=== PATIENT | male | born 1995 | race African-American/Black ===

== ENCOUNTER 2020-02-27 12:46 | Emergency (ER) | payer BC ==
[~2020-02-27] VITALS: Ht 177.8 cm; Wt 95.3 kg
[~2020-02-27 12:46] MED LIST: NOHOMEMEDICATIONS
[2020-02-27] MEDS ORDERED: COLACE100 MG (13:01)
[2020-02-27 14:06] LABS: ABSOLUTE BASOPHILS 0.1 thou/uL (0.0-0.2); ABSOLUTE EOSINOPHILS 0.1 thou/uL (0.0-0.7); ABSOLUTE LYMPHOCYTES 1.4 thou/uL (0.8-5.3); ABSOLUTE MONOCYTES 0.4 thou/uL (0.0-1.2); ABSOLUTE NEUTROPHILS 3.2 thou/uL (1.6-8.1); HEMATOCRIT 41.9 % (42.0-52.0); HEMOGLOBIN 14.2 gm/dL (14.0-18.0); LYMPHOCYTES 27.3 %; MCH 27.8 pg (26.0-34.0); MCHC 33.9 g/dL (28.0-37.0); MONOCYTES 8.2 %; MPV 8.4 fl. (7.2-11.1); NUCLEATED RBCS 0 /100WBC; PLATELET COUNT* 231 thou/uL (150-400); POLYS 62.5 %; RBC 5.11 mil/uL (4.50-6.00); RDW-CV 13.5 % (10.5-14.5); WBC 5.2 thou/uL (4.0-11.0)
[2020-02-27 14:14] LABS: CALCIUM 8.4 mg/dL (8.5-10.1); CREATININE 1.1 mg/dL (0.6-1.3); POTASSIUM 3.7 mmol/L (3.5-5.1)
[2020-02-27 14:18] LABS: ALBUMIN 4.2 g/dL (3.4-5.0); TOTAL BILIRUBIN 0.5 mg/dL (<0.1-1.0)
[2020-02-27] MEDS ORDERED: OMEPRAZOLE 20 M20 M1 PO ×2 (15:43→16:02)
[2020-02-27] MEDS ORDERED: AMOXICILLIN 50500 MG PO (16:02)
[2020-02-27] MEDS ORDERED: DIGESTIVE PO (16:02)
[2020-02-27] MEDS ORDERED: CLARITHROMYCIN500 MG PO (16:02)
[2020-02-27 16:16] VITALS: BP 110/66
== END 2020-02-27 16:18 | disposition home or self-care (01) ==
LOC: M.ERS 12:46
PROVIDERS: Physician Assistant
DX: R10.84 Generalized abdominal pain (principal); R10.30 Lower abdominal pain, unspecified; J45.909 Unspecified asthma, uncomplicated